=== PATIENT | female | born 1990 | race Caucasian/White ===

== ENCOUNTER 2017-10-28 17:42 | Outpatient (CLI) | payer OTHER ==
[~2017-10-28] VITALS: Ht 162.6 cm; Wt 66.4 kg
[~2017-10-28 17:42] MED LIST: CLC100X PO; PRENTAB26 PO
[2017-10-28 18:43] VITALS: Ht 162.6 cm; Wt 66.4 kg
--- NOTE | 2017-10-28 19:58 | DIAGNOSTIC IMAGING REPORT ---
LIMITED (US) CLINICAL HISTORY: 27 years-old Female presenting with BPP. TECHNIQUE: Real-time grayscale and M-mode Doppler ultrasound imaging of the pelvis was performed using a transabdominal probe. Color and spectral Doppler ultrasound imaging of the adnexa was also performed. COMPARISON: None. FINDINGS: Uterus: Single live intrauterine . Femur length 7.5 cm, which correlates with an estimated gestational age of 38 weeks 2 days. heart rate 158 beats per minute. Cephalic presentation. Normal amniotic fluid volume, with an amniotic fluid index of 10.32 cm. Anterior fundal placental implantation. No perigestational fluid to suggest hemorrhage. Cervix not visualized Biophysical profile score: 8/8 Right adnexa: Right ovary not visualized. Left adnexa: Left ovary not visualized. Other: No free fluid. IMPRESSION: 1. Normal-appearing single live third trimester intrauterine with an estimated gestational age of 38 weeks 2 days. 2. Ultrasound biophysical profile score 8/8. Electronically signed by: Mk Guillory M.D. 10/28/2017 7:57 PM Dictated Date/Time: 10/28/2017 7:54 PM
--- NOTE | 2017-10-28 20:05 | Discharge Instructions ---
Discharge Instructions Date of Service Oct 28, 2017. Admission Reason for Admission: Abdomen Pain Discharge Discharge Diagnosis / Problem: abdminal pain Discharge Goals Goal(s): Continuing OB care Activity Recommendations Activity Limitations: as noted below SPECIAL CARE INSTRUCTIONS: Call Doctor if: * Regular contractions every 5 minutes or greater than contractions in one hour. * Bleeding * Water breaks or is leaking * Decreased movement * Fever >100.4 degrees F * Pain not relieved by routine measures or pain medication ordered. FOLLOW UP VISIT: Return to Labor and Delivery on for /call for appointment time . Follow-up Visit with: When: . Current Hospital Diet Patient's current hospital diet: Discharge Diet Recommended Diet: Regular Diet Pending Studies Studies pending at discharge: no Medical Emergencies . Who to Call and When: Medical Emergencies: If at any time you feel your situation is an emergency, please call 911 immediately. . Non-Emergent Contact Non-Emergency issues call your: Specialist . . "Provider Documentation" section prepared by Pedro Carrillo. . VTE Core Measure Inpt VTE Proph given/why not?: Treatment not indicated
--- NOTE | 2017-10-28 21:10 | HISTORY & PHYSICAL EXAMINATION ---
DATE OF ADMISSION: 10/28/2017 HISTORY OF PRESENT ILLNESS: This is a 27-year-old G3, P0. The patient has been seen at [facility] care. Her last visit was 4 weeks ago. The patient is 39 weeks plus. She is an attempting patient. The patient was doing well until this morning when she felt a sudden pulling sensation in her upper abdomen. She therefore presented to labor and delivery and wanted to be evaluated. She was placed on the monitor and a pelvic exam done shows she was 1 cm, 50% effaced and -3 station. The patient was having irregular contractions. She was not in labor. Her presentation today is because of the pulling sensation that she felt. She wanted to make sure she was not in labor. Because the patient had not been seen in the office for a month, a biophysical profile was ordered to evaluate patient's fluid as well as status of the baby. Past medical history, social history, family history have all been reviewed. BPP is 8/8. The patient tells me she now has a vehicle and will call on Tuesday for an office appointment. We discussed trial of labor after section. We discussed risks of uterine rupture as well as the risks of section including infection, bleeding and damage to internal organs. The patient is with her spouse and has 3 kids. She tells me she will return next week to receive care, so we can discuss induction in case she goes postdate. The patient has been discharged home with instructions. SHAUNNA
== END 2017-10-28 20:26 | disposition home or self-care (01) ==
LOC: C.OPB 17:42 → C.LD 17:42 → C.OPB 20:26
PROVIDERS: ATTEND Obstetrics & Gynecology
DX: O99.89 Other specified diseases and conditions complicating pregnancy, childbirth and the puerperium (principal); R10.9 Unspecified abdominal pain; Z3A.39 39 weeks gestation of pregnancy

== ENCOUNTER 2017-11-05 02:23 | Inpatient (IN) | payer OTHER ==
[~2017-11-05] VITALS: Ht 162.6 cm; Wt 69.1 kg
[2017-11-05] MEDS ORDERED: LACTATED RINGER'S 1000ML 1,000 ML IV PRN (02:46)
[2017-11-05] MEDS ORDERED: PENICILLIN G POTASSIUM IV 6 MU in DEXTROSE 5% 250ML 250 ML IV ONE (03:00)
[2017-11-05] MEDS ORDERED: PENICILLIN G POTASSIUM IV 3 MU in DEXTROSE 5% 100ML 100 ML IV PRN (03:00)
[2017-11-05] MEDS: LACTATED RINGER'S 1000ML 1,000 ML IV SCH ×3 (03:06→10:30)
[2017-11-05 03:20] VITALS: Ht 162.6 cm; Wt 69.1 kg
[2017-11-05 03:21] LABS: HEMATOCRIT 36.7 % (37-47); HEMOGLOBIN 12.5 g/dL (12.0-16.0); MEAN CELL VOLUME 89.3 fL (80-100); MEAN CORPUSCULAR HEMOGLOBIN 30.4 pg (25-34); MEAN CORPUSCULAR HGB CONC 34.1 g/dl (32-36); PLATELET COUNT 183 K/uL (130-400); RED CELL DISTRIBUTION WIDTH SD 46.1 fL (36.4-46.3); WHITE BLOOD COUNT 9.72 K/uL (4.8-10.8)
[2017-11-05] MEDS ORDERED: EpHEDrine SULFATE INJ 50 MG/ML AMP ONE (05:10)
[2017-11-05] MEDS ORDERED: BUPIVACAINE 0.25% 30 ML VIAL ONE (05:10)
[2017-11-05] MEDS ORDERED: FENTANYL 2MCG/ML ROPIV 1.25MG/ML 100ML BAG EPI ONE (05:11)
[2017-11-05] MEDS ORDERED: FENTANYL CITRATE INJ 50 MCG/1 ML 2 ML VIAL ONE (05:11)
--- NOTE | 2017-11-05 05:39 | Progress Note ---
Progress Note Date of Service Nov 05, 2017. Progress Note Admit Note 27 F P3003 at 40.5 weeks admitted with SROM clear fluid in early labor desiring TOLAC. Now -/. GBS is positive. FHT Cat 1. Requesting epidural for pain. Has had with last delivery for twins with vaginal delivery for first baby. Anticipate vaginal delivery.
[2017-11-05] MEDS ORDERED: NALOXONE HCL INJ 1 MG in SODIUM CHLORIDE 0.9% 1000ML 1,000 ML IV PRN (06:26)
[2017-11-05] MEDS ORDERED: LACTATED RINGER'S 1000ML 500 ML IV PRN (06:26)
[2017-11-05] MEDS ORDERED: FENTANYL 2MCG/ML ROPIV 1.25MG/ML 100ML BAG EPI PRN (06:30)
[2017-11-05] MEDS ORDERED: EpHEDrine SULFATE INJ 50 MG/ML AMP IV PRN (06:30)
[2017-11-05] MEDS ORDERED: NALBUPHINE HCL INJ 10 MG/ML AMP IV PRN (06:30)
[2017-11-05] MEDS ORDERED: NALOXONE HCL INJ 0.4 MG/1 ML VIAL/CARP IV PRN (06:30)
[2017-11-05] MEDS ORDERED: DiphenhydrAMINE HCL 50 MG/ML VIAL IV PRN (06:30)
[2017-11-05] MEDS ORDERED: ONDANSETRON INJ 2 MG/ML 2 ML VIAL IV PRN (06:30)
[2017-11-05] MEDS ORDERED: OXYTOCIN 30 UNITS/500ML NSS IV ONE (07:17)
[2017-11-05] MEDS ORDERED: METHYLERGONOVINE MALEATE 0.2 MG/ML AMP ONE (07:34)
[2017-11-05] MEDS ORDERED: MISOPROSTOL 200 MCG TAB ONE (07:38)
[2017-11-05] MEDS ORDERED: MEASLES, MUMPS & RUBELLA VIRUS VIAL SQ. ONE (07:45)
[2017-11-05] MEDS ORDERED: BENZOCAINE 20% AER SPR 82.5 GM CAN EXT PRN (07:45)
[2017-11-05] MEDS ORDERED: HYDROCORTISONE ACETATE 25 MG SUPP PR PRN (07:45)
[2017-11-05] MEDS ORDERED: IBUPROFEN 600 MG TAB PO PRN (07:45)
[2017-11-05] MEDS ORDERED: OXYTOCIN 30 UNITS/500ML NSS IV PRN (07:45)
[2017-11-05] MEDS ORDERED: SUPERCREAM 0.870 % 15GM JAR EXT PRN (07:45)
[2017-11-05] MEDS ORDERED: LANOLIN OINT EXT PRN (07:45)
[2017-11-05] MEDS ORDERED: ACETAMINOPHEN 325 MG TAB PO PRN (07:45)
[2017-11-05] MEDS ORDERED: DIPHTHERIA/TETANUS/PERTUSSIS 0.5 ML SYR/VIAL IM. ONE (07:45)
[2017-11-05] MEDS ORDERED: METHYLERGONOVINE MALEATE 0.2 MG/ML AMP IM ONE (07:45)
--- NOTE | 2017-11-05 07:53 | Vaginal Delivery Summary ---
Vaginal Delivery Summary Delivery Note live male over intact perineum AMIE with Apgars 9/9 delayed cord clamping followed by cord blood. Placenta delivered spontaneously and intact. No tears. Small amount of bleeding after delivery of placenta. Cytotec 1000.00 mcg given rectally followed by Methergine. EBL 400 ml. Final sponge and instrument count are correct. Mom and baby stable.
--- NOTE | 2017-11-05 08:24 | Anesthesia Procedure Note ---
Anesthesia Epidural Removal Nt Date & Time Nov 05, 2017 at 08:23 Notes Mental Status: alert / awake / arousable, participated in evaluation Nausea / Vomiting: adequately controlled Pain: adequately controlled Airway Patency, RR, SpO2: stable & adequate BP & HR: stable & adequate Hydration State: stable & adequate Neuraxial Anesthesia: was administered Anesthetic Complications: no major complications apparent, pt satisfied with anesthetic care Epidural: removed without complications, with tip intact
[2017-11-05] MEDS ORDERED: MISOPROSTOL 200 MCG TAB PR ONE (08:30)
[2017-11-05] MEDS: PRENATAL VITAMIN TAB PO SCH (09:38)
[2017-11-05] MEDS: DOCUSATE SODIUM 100 MG CAP PO SCH ×2 (09:39→20:19)
[2017-11-05] MEDS: FERROUS SULFATE 325 MG TAB PO SCH (09:40)
[2017-11-05 10:30] VITALS: BP 119/71; PULSE 90; TEMP 37.2
[2017-11-05 15:35] VITALS: BP 99/63; PULSE 90; TEMP 36.8
[2017-11-05 19:25] VITALS: BP 111/73; PULSE 80; TEMP 36.7; O2SAT 98
[2017-11-05 23:10] VITALS: BP 113/70; PULSE 96; TEMP 37; O2SAT 97
[2017-11-06 03:45] VITALS: BP 103/64; PULSE 79; TEMP 36.9; O2SAT 98
[2017-11-06 06:28] LABS: HEMATOCRIT 25.2 % (37-47); HEMOGLOBIN 8.6 g/dL (12.0-16.0)
[2017-11-06 07:26] VITALS: BP 130/77; PULSE 72; TEMP 37
[2017-11-06] MEDS: PRENATAL VITAMIN TAB PO SCH (08:16)
[2017-11-06] MEDS: FERROUS SULFATE 325 MG TAB PO SCH (08:16)
[2017-11-06] MEDS: DOCUSATE SODIUM 100 MG CAP PO SCH ×2 (08:17→20:25)
--- NOTE | 2017-11-06 08:58 | OB/GYN Progress Note ---
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 Subjective conversation w/ patient, physical exam Ambulation: ambulating normally Voiding: no voiding problems Passing Gas: Yes Diet Tolerance: Regular Diet Lochia: Moderate Feeding Type: Breast Feeding Pain: /10 Notes: Doing well, no concerns. Pain well controlled. Tolerating regular diet. Ambulating without difficulty. Lochia decreasing. Objective Vital Signs Date Time Temp Pulse Resp B/P (MAP) Pulse Ox O2 Delivery O2 Flow Rate FiO2 11/06/17 07:45 Room Air 11/06/17 07:26 37.0 72 20 130/77 (94) Room Air 11/06/17 03:45 36.9 79 16 103/64 (77) 98 Room Air 11/05/17 23:10 97 Room Air 11/05/17 23:10 37.0 96 18 113/70 (84) 97 Room Air 11/05/17 19:25 36.7 80 18 111/73 (86) 98 Room Air 11/05/17 15:35 Room Air 11/05/17 15:35 36.8 90 20 99/63 (75) Room Air 11/05/17 10:30 Room Air 11/05/17 10:30 37.2 90 20 119/71 (87) Room Air Physical Exam General Appearance: WELL-APPEARING Respiratory/Chest: chest non-tender, lungs clear Cardiovascular: regular rate, rhythm Abdomen: normal bowel sounds, soft Fundus: Firm Extremities: normal range of motion, non-tender, no calf tenderness Laboratory Results Last 24 Hours Test 11/06/17 06:12 Hemoglobin 8.6 g/dL Hematocrit 25.2 % Assessment and Plan Post- Day Number: 1 Continue Routine Care: -Advance activity as tolerated -Continue routine care -Anticipate d/c home tomorrow AM
[2017-11-06 15:20] VITALS: BP 105/64; PULSE 77; TEMP 36.6
[2017-11-06] MEDS ORDERED: BISACODYL 5 MG TABEC PO SCH (20:00)
[2017-11-06 23:45] VITALS: BP 106/67; PULSE 81; TEMP 36.8
[2017-11-07] MEDS ORDERED: BISACODYL 10 MG SUPP PR PRN (07:00)
[2017-11-07 07:30] VITALS: BP 105/67; PULSE 90; TEMP 36.7
[2017-11-07] MEDS: FERROUS SULFATE 325 MG TAB PO SCH (08:17)
[2017-11-07] MEDS: DOCUSATE SODIUM 100 MG CAP PO SCH (08:17)
[2017-11-07] MEDS: PRENATAL VITAMIN TAB PO SCH (08:17)
--- NOTE | 2017-11-07 08:52 | OB/GYN Progress Note ---
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 Patient is seen and examined. She feels well, no complaints. Ambulating without dizziness Voiding without difficulty Tolerating regular diet with out N&V Bleeding is minimal No fever/ chills/ CP/ SOB/ N&V/ Leg pain Breast feeding without problems Discussed contraception with patient in details. Abstinence for 6 weeks, BCP, progestin only pills, Nexplanon, IUD's, Mirena and Pargard. She likes to start POP at 4 weeks Date Time Temp Pulse Resp B/P (MAP) Pulse Ox O2 Delivery O2 Flow Rate FiO2 11/06/17 23:45 36.8 81 18 106/67 (80) Room Air 11/06/17 23:45 Room Air 11/06/17 15:20 Room Air 11/06/17 15:20 36.6 77 18 105/64 (78) Room Air PE: General: Alert, orientedx3, NAD Abd: soft, NT, fundus firm, below Umbilicus Perineum intact, Lochia rubra minimal Ext; NT, no edema AP: 27 yo s/p ,, ppd# 2 VSS Afebrile doing well Anemic asymptomatic: will Rx iron and PNV Continue routine care All questions were answered D/C home , F/U IN office
[2017-11-07] MEDS ORDERED: FRRS300 PO (08:53)
[2017-11-07] MEDS ORDERED: CLC100 PO (08:53)
[2017-11-07] MEDS ORDERED: MTR600X PO (08:53)
--- NOTE | 2017-11-07 08:54 | Discharge Instructions ---
Discharge Instructions Date of Service Nov 07, 2017. Admission Reason for Admission: LABOR Discharge Discharge Diagnosis / Problem: Discharge Goals Goal(s): Routine recovery after delivery Activity Recommendations Activity Limitations: as noted below ACTIVITY RECOMMENDATIONS: * Gradual return to full activity over the next 2-3 weeks. * No lifting - nothing heavier than baby over the next 2-3 weeks. * Do not engage in vigorous exercise, sexual activity or sports until cleared by your physician. * Do not drive or operate any motorized equipment until cleared by your physician. * You may shower/bathe daily. BREAST CARE: If you are not breast feeding: * Wear a supportive bra 24 hours a day for one to two weeks. * Avoid stimulating your breasts and nipples as much as possible during the first few weeks after delivery. * When taking a shower, have the warm water hit your back, not breasts. * When your breasts feel full, apply ice packs. Usually three to four times a day helps ease the discomfort. * Take a mild pain medication (Tylenol/Motrin) when you are uncomfortable. If breast feeding: * Use breast milk to lubricate nipples. Lansinoh cream may be used for sore nipples. You do not need to remove cream prior to breast feeding. If using a different brand of cream, check the label for directions regarding removal of cream prior to nursing. * Wear a supportive bra. * If having problems with breasts or breast feeding, call a senior health consultant or your health care provider. EPISIOTOMY CARE: After delivery, if you have an episiotomy (stitches), the following steps will ease discomfort and aid healing. * For the first 24 hours after delivery, place ice packs next to your episiotomy to help reduce swelling. * After the first 24 hour-period, sitz baths, either portable or in the tub, are suggested. A shower with a shower arm sprayed over the episiotomy may be comforting. * Debi care should be done after each voiding and bowel movement. Squirt warm water from a plastic bottle over the perineum (region of the body between the anus and urinary opening) and pat dry. * Use Dermoplast to ease discomfort. Shake container. Lyons directly over the episiotomy. * Place a Tucks on a clean sanitary pad next to your episiotomy. OVER THE COUNTER MEDICATION: * For discomfort or pain, you may use Acetaminophen (Tylenol), Ibuprofen (Advil ), or Naproxen (Aleve) following the package directions. * For constipation you may use Colace following the package directions. SPECIAL CARE INSTRUCTIONS: When you are discharged from the hospital, it is important for you to follow the instructions listed below: * During the first week at home, you should be able to care for yourself and your baby. In addition, the usual light household activities are encouraged. * Limit your activities to the way you feel. Do not try to clean the house or move furniture. Be sensible. * If you actively engage in sports and have done so up until the time of your delivery, you may resume these activities as soon as you feel able. This may take up to one month or even longer. Use good judgment. * Continue to take your vitamins for at least six weeks after the of your baby. * Your diet need not be limited unless you were on a special diet before your delivery. Breast-feeding mothers need around 2500 calories per day and at least 64-80 ounces of fluid per day (8 to 10 glasses). * You should eat foods from the four major food groups. Crash diets or fad diets are to be avoided. Eating lean meats, fresh fruits and vegetables, low-fat dairy products, high fiber foods and a regular exercise program, will help you get back to your pre- weight without putting your health at risk. * Constipation is sometimes a problem after delivery. Take a mild laxative as needed. If breast feeding, Milk of Magnesia is acceptable to use. You may use a suppository or Fleets enema if no episiotomy. * A daily shower or tub bath is suggested. Be sure to thoroughly and gently dry the perineum. * A bloody vaginal discharge will usually continue until around four weeks post . A small amount of bleeding may continue for as long as six weeks. Vaginal discharge changes from the bright red bleeding after delivery to pink then brownish and finally yellowish-pink before becoming white and disappearing. * Bleeding may increase with activity. Your first period may come in 4-8 weeks. If you are breast feeding, your period may be delayed even longer. * Crockett (sex) can begin whenever both you and your partner feel comfortable and do not have any form of genital infection. It is recommended that you wait until after your return appointment and discuss with your physician. If you have questions, please talk to your health care practitioner. A condom should be used to prevent infection and . * Foreplay, gentle intercourse and lubrication is very important the first several times to prevent pain. A water-based lubricant such as K-Y jelly or Astroglide may be used. * Tampons may be used six weeks after delivery. * Douching should be avoided for 6 weeks after delivery. * If you have RH negative blood and your baby is RH positive, you will receive RHOGAM by injection prior to discharge. The nurse will give you a card to keep with you that has the date and place that you received RHOGAM after delivery. * During your care, you had a Rubella screen done to check for the presence of rubella antibodies in your blood. If your test was negative, you will receive a Rubella vaccine prior to discharge. This vaccine may cause a fever, soreness at the injection site and flu-like symptoms. If these symptoms persist, notify your health care practitioner. is not advised for three months after a Rubella vaccine. There is a higher chance of having a baby with defects if conceived within three months of getting the vaccine. * If you were discharged 24 hours from delivery or before 48 hours: Visiting nurses will come to your home 48 hours after discharge to assess you and your baby. The visiting nurse will meet with you while you are in the hospital to arrange a time and get directions to your home. * Verbalizes understanding of car seat law as reviewed with patient nursing. * Car Seat hand-out given and reviewed with patient by nursing. * Shaken baby information reviewed with patient by nursing. Call you doctor if: * Heavy bleeding (saturating several pads an hour) or passing clots the size of your fist. * A fever >101 degrees F (38.3 degrees C) on two occasions four hours apart and/or chills. * Unusual pain in the pelvic or vaginal areas. * "Baby Blues" lasting longer than two weeks. If you have any questions or concerns, call your health care practitioner at . FOLLOW-UP VISIT: * Please call the office at to schedule a 6 week examination. It is important you keep this appointment. * It is important for you to make arrangements for either yearly or twice yearly check-ups thereafter. . Current Hospital Diet Patient's current hospital diet: Regular OB Diet Discharge Diet Recommended Diet: Regular Diet Pending Studies Studies pending at discharge: no Medical Emergencies . Who to Call and When: Medical Emergencies: If at any time you feel your situation is an emergency, please call 911 immediately. . Non-Emergent Contact Non-Emergency issues call your: Specialist Call Non-Emergent contact if: temperature is above 100.5, your pain is not controlled, your pain is worsening . . "Provider Documentation" section prepared by Alena Toussaint. . VTE Core Measure Inpt VTE Proph given/why not?: Treatment not indicated
[2017-11-07] MEDS ORDERED: NORE0.3527 PO (14:37)
[2017-11-07 16:26] VITALS: BP 116/76; PULSE 81; TEMP 36.6
== END 2017-11-07 20:25 | disposition home or self-care (01) | DRG 775 ==
LOC: C.OPB 02:23 → C.LD 02:23 → C.OPB 02:48 → C.OBG 10:26
PROVIDERS: ADMIT Obstetrics & Gynecology; ATTEND Obstetrics & Gynecology
PROC: 10E0XZZ Delivery of Products of Conception, External Approach (ICD-10-PCS; principal; 2017-11-05)
DX: O34.219 Maternal care for unspecified type scar from previous cesarean delivery (principal); N85.8 Other specified noninflammatory disorders of uterus; O99.824 Streptococcus B carrier state complicating childbirth; O48.0 Post-term pregnancy; O90.81 Anemia of the puerperium; D64.9 Anemia, unspecified; Z3A.40 40 weeks gestation of pregnancy; Z37.0 Single live birth